=== PATIENT | female | born 1955 | race Caucasian/White ===

== ENCOUNTER → 2016-06-27 | Outpatient (CLI) | payer BC, MEDICARE ==
[~2016-06-27] MED LIST: ALBU2.5V4 IH; AMIT10TA6 PO; AMIT25TA9 PO; AMOX1TAB12 PO; AZIT250T PO; CALC-656 PO; CALC-9 PO; CALC0.253 PO; CHOL500049 PO; CODE118S2 PO; COLE1TAB PO; FERR324T4 PO; FERR55TA PO; FURO40TA4 PO; GABA300S PO; GBPN300C PO; HYDR-707 PO; LVT.05T PO; MOME13HF2 IH; MULT-618 PO; OMAL150V SC; POTA10TA36 PO; POTA99TA7 PO; PRAM1TAB3 PO; PRED50TA PO; SPIR50TA29 PO; VITA1CAP29 PO
[2016-06-27 11:35] LABS: ANION GAP 18.4 MEQ/L (3-15)
== END ==
LOC: LAB 11:11
PROVIDERS: ATTEND Nurse Practitioner Family
DX: E87.6 Hypokalemia (principal)
CPT/HCPCS: 36415; 80048

== ENCOUNTER 2016-07-18 10:30 | Outpatient (RCR) | payer BC, MEDICARE | END 2016-08-13 12:00 | disposition home or self-care (01) | LOC: PT 10:30 | PROVIDERS: ATTEND Orthopaedic Surgery | DX: S42.302D Unspecified fracture of shaft of humerus, left arm, subsequent encounter for fracture with routine healing (principal); W01.198D Fall on same level from slipping, tripping and stumbling with subsequent striking against other object, subsequent encounter; M75.02 Adhesive capsulitis of left shoulder | CPT/HCPCS: 97016; 97110; 97140; 97161; G8984; G8985 ==

== ENCOUNTER → 2016-08-12 | Outpatient (REF) | payer BC, MEDICARE ==
[2016-08-12 12:24] LABS: BASOPHILS % (AUTO) 1 % (0-2); EOSINOPHILS # (AUTO) 0.1 10^3uL; EOSINOPHILS % (AUTO) 1 % (0-4); LYMPHOCYTES # (AUTO) 2.3 X10^3; MEAN CORPUSCULAR HEMOGLOBIN 28.7 PG (26.0-34.0); MEAN CORPUSCULAR HGB CONC 33.2 g/dL (31.0-37.0); MEAN CORPUSCULAR VOLUME 87 FL (80-100); MEAN PLATELET VOLUME 10.5 FL (6.0-9.5); MONOCYTES # (AUTO) 0.4 X10^3; MONOCYTES % (AUTO) 5 % (3-11); NEUTROPHILS # (AUTO) 5.4 X10^3; NEUTROPHILS % (AUTO) 66 % (51-67); PLATELET COUNT 182 10^3uL (150-450); WHITE BLOOD COUNT 8.29 10^3uL (4.0-11.0)
[2016-08-12 12:36] LABS: ANION GAP 15.5 MEQ/L (3-15); MAGNESIUM* 1.9 mg/dL (1.6-2.3)
== END ==
LOC: LAB 11:45
PROVIDERS: ATTEND Nurse Practitioner Family
DX: D64.9 Anemia, unspecified (principal); E87.6 Hypokalemia; E55.9 Vitamin D deficiency, unspecified; R25.2 Cramp and spasm
CPT/HCPCS: 80048; 82306; 83735; 85025

== ENCOUNTER → 2016-09-19 | Outpatient (CLI) | payer BC, MEDICARE ==
[~2016-09-19] MED LIST changes: +ROPIVACAINE 1% 10 MG/ML (NAROPIN) 10 ML AMPUL ONE; +SODIUM CHLORIDE VIAL (PF) 10 ML IV ONE; +methylPREDNISolone 80 MG/ML (DEPO MEDROL) VIAL IM ONE
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
== END ==
LOC: PMC 11:46
PROVIDERS: ATTEND Family Medicine
DX: M48.07 Spinal stenosis, lumbosacral region (principal); J45.909 Unspecified asthma, uncomplicated; E03.9 Hypothyroidism, unspecified; Z87.891 Personal history of nicotine dependence
CPT/HCPCS: 62322; J1040; J2795; J7050